=== PATIENT | male | born 1980 | race Caucasian/White ===

== ENCOUNTER 2018-02-15 00:12 | Emergency (ER) | payer OTHER ==
[~2018-02-15] VITALS: Ht 157.5 cm; Wt 74.8 kg
[2018-02-15] MEDS ORDERED: KEFLEX500 M1 PO (00:33)
[2018-02-15] MEDS ORDERED: IBUPROFEN 600600 M1 PO (00:33)
[2018-02-15] MEDS ORDERED: NORCO 5-325 TA1 EACH PO (00:33)
[2018-02-15] MEDS ORDERED: BACTRIM DS TAB1 EACH PO (00:33)
[2018-02-15 01:26] VITALS: BP 121/70
== END 2018-02-15 01:27 | disposition home or self-care (01) ==
LOC: ER 00:12
DX: L03.115 Cellulitis of right lower limb (principal); F17.200 Nicotine dependence, unspecified, uncomplicated